=== PATIENT | female | born 1975 | race Caucasian/White ===

== ENCOUNTER 2023-07-06 10:38 | Emergency (ER) | payer MEDICARE, MEDICAID, SELFPAY ==
[2023-07-06 10:50] VITALS: BP 176/115; PULSE 76; RESP 15; TEMP 37.1; O2SAT 98; BMI 39.1
--- NOTE | 2023-07-06 11:30 | ED_ITS ---
HPI - Extremity Problem General: Chief complaint: Extremity Problem,Nontraumatic Stated complaint: left leg pain/numb, rash, Fever, chills, abd pain Time Seen by Provider: 07/06/23 10:40 Course Vital Signs: Vital signs: Vital Signs Temperature 98.7 F 07/06/23 10:50 Pulse Rate 76 07/06/23 10:50 Respiratory Rate 15 07/06/23 10:50 Blood Pressure 176/115 07/06/23 10:50 Pulse Oximetry 98 07/06/23 10:50 Oxygen Delivery Me thod Room Air 07/06/23 10:50 Discharge Plan Discharge Condition: Stable Coding Level of Care Code ED Fundraising Manager for Silvia Haley
--- NOTE | 2023-07-06 11:44 | ED_ITS ---
HPI - Extremity Problem General: Chief complaint: Extremity Problem,Nontraumatic Stated complaint: left leg pain/numb, rash, Fever, chills, abd pain Time Seen by Provider: 07/06/23 10:40 Source: patient Mode of arrival: ambulatory Limitations: no limitations History of Present Illness: Patient is a nice 47-year-old female presents to ED today with complaint of pain and a rash to her left leg. Patient states a few days ago she began noticing a burning sensation to her leg and thought maybe she possibly pulled a muscle although she does not remember any acute injury or trauma. She states she slow ly began noticing a rash to the left leg. She states she lives in a homeless custodial and is worried that she may have caught something and is worried about it spreading. She is reporting subjective fevers and chills. MD Complaint: extremity pain Onset (ago): day(s) Pain Consistency: constant Location: left and lower extremity Quality: burning Radiation: none Relieving factors: nothing Exacerbating factors: nothing Associated symptoms: Reports no associated symptoms, fever(s) and rash; Deny chest pain Review of Systems Const: Reports: fever(s) and chills; Denies: body aches, fatigue or malaise Card: Denies: chest pain Resp: Denies: dyspnea GI: Denies: abdominal pain : Denies: flank pain or dysuria Musc: Reports: back pain and extremity pain; Denies: neck pain, extremity swelling, joint pain, joint swelling, joint redness, joint warmth, joint stiffness or limited range of motion Skin/Breast: Reports: rash Neuro: Denies: headache(s), numbness in extremities, weakness in extremities or sensory changes Physical Exam Const: COMMON NORMALS: no acute distress, patient oriented x3, no limitations, alert and well nourished GENERAL APPEARANCE: cooperative NUTRITIONAL APPEARANCE: overweight ORIENTATION/CONSCIOUSNESS: Yes awake, Yes oriented to person, Yes oriented to place and Yes oriented to time Eye: GENERAL EYE: appearance normal, both eyes and all related structures Resp: COMMON NORMALS: normal respiratory effort and clear to auscultation bilaterally AUSCULTATION: clear to auscultation bilaterally Cardio: COMMON NORMALS: regular rate and regular rhythm RATE: regular rate RHYTHM: regular rhythm Back/Pelvis: LUMBAR SPINE/LOWER BACK: Yes normal to inspection and Yes lumbar ROM normal BACK IMAGE (FEMALE): 1. 2. 3. erythematous vesicular clusters Extremity: COMMON NORMALS: full ROM, capillary refill normal, no joint enlargement, no clubbing, cyanosis or edema, no calf tenderness and no pedal edema GENERAL: Yes normal exam except as noted EXTREMITY IMAGE (FRONT): 1. 2. 3. erythematous vesicular clusters Neuro: COMMON NORMALS: patient oriented x3, moves all extremities, no focal motor deficits and no sensory deficits noted SENSORIUM/ORIENTATION: Yes alert, Yes oriented to person, Yes oriented to place and Yes oriented to time Skin: NARRATIVE SKIN EXAM: Patient has scattered clusters of erythematous vesicles along lower lumbar dermatome consistent with herpes zoster RASHES: rashes noted Course Vital Signs: Vital signs: Vital Signs Temperature 98.7 F 07/06/23 10:50 Pulse Rate 76 07/06/23 10:50 Respiratory Rate 15 07/06/23 10:50 Blood Pressure 176/115 07/06/23 10:50 Pulse Oximetry 98 07/06/23 10:50 Oxygen Delivery Me thod Room Air 07/06/23 10:50 MDM - Extremity (Nontraumatic) Medical Decision Making Patient will be treated with valtrex, prednisone, hydrocodone. Discussed precautions in regards to staying away from unvaccinated, anybody who has never had chickenpox, and individuals. No radiology studies performed this visit Discharge Plan Discharge Patient Disposition: Home Clinical Impression: Shingles Qualifiers: Herpes zoster complications: without complications Qualified Code(s): B02.9 - Zoster without complications Condition: Stable Prescriptions: New Valtrex 1 gram tablet 1,000 mg PO TID 7 Days Qty: 21 0RF prednisone 10 mg tablet 10 mg PO DAILY 10 Days Qty: 27 0RF Rx Instructions: 6 tabs on days 1-2, 5 tabs on days 3, 4 tabs on day 4, 3 tabs on day 5, 2 tabs on day 6, 1 tab on day 7 hydrocodone-acetaminophen 5-325 mg tablet 1 tab PO Q6H PRN (Reason: pain) Qty: 14 0RF Discharge Orders: Discharge ED (Routine); Ordered 07/06/23 Ordered By: Fanta Jovel Patient Instructions: Shingles (ED) Stand Alone Forms: Work/School Release Coding Level of Care Code ED Skip Pitman for [facility]
== END 2023-07-06 11:52 | disposition home or self-care (01) ==
PROVIDERS: Emergency Provider Physician Assistant
DX: B02.9 Zoster without complications (principal)
CPT/HCPCS: 99284

== ENCOUNTER 2023-07-24 11:16 | Emergency (ER) | payer MEDICARE, MEDICAID, SELFPAY ==
[2023-07-24 11:30] VITALS: BP 176/91; PULSE 90; RESP 17; TEMP 37.1; O2SAT 99; BMI 32.8
--- NOTE | 2023-07-24 11:44 | ED_ITS ---
HPI - Skin/Abscess/Foreign Bdy General: Chief complaint: Skin/Abscess/Foreign Body Stated complaint: pa said shingles coming back Time Seen by Provider: 07/24/23 11:19 Source: patient Mode of arrival: ambulatory Limitations: no limitations History of Present Illness: Patient is a 47-year-old female presents to ED today with complaints of continued burning and nerve pain related to shingles that she was diagnosed with by myself about 3 weeks ago. Patient at time of diagnosis was placed on steroids, antiviral medications as well as pain medications. She states rash has subsided but is still left with the burning sensation. complaint: rash Onset (ago): week(s) Tetanus up to date: yes Location: LLE Severity: moderate Quality: burning Pain Consistency: constant Relieving factors: none Exacerbating factors: none Context: other (shingles 3 weeks ago) Associated symptoms: Reports no associated symptoms; Deny chills or fever(s) Treatments prior to arrival: none Review of Systems Const: Denies: fever(s), chills, body aches, fatigue or malaise Eyes: Denies: eye discomfort ENMT: Denies: ear or mastoid pain Card: Denies: chest pain Resp: Denies: dyspnea GI: Denies: abdominal pain Musc: Reports: extremity pain; Denies: neck pain, back pain, extremity swelling, joint pain, joint swelling, joint redness, joint warmth, joint stiffness, limited range of motion, muscle cramps, muscle weakness or decrease in muscle mass Skin/Breast: Reports: rash (healing rash; burning to where previous vesicular formations were) Neuro: Denies: headache(s), numbness in extremities, weakness in extremities or sensory changes Physical Exam Const: COMMON NORMALS: no acute distress, patient oriented x3, no limitations, alert and well nourished GENERAL APPEARANCE: cooperative NUTRITIONAL APPEARANCE: overweight Extremity: COMMON NORMALS: full ROM, capillary refill normal, no joint enlargement, no clubbing, cyanosis or edema, no calf tenderness and no pedal edema NARRATIVE EXTREMITY EXAM: R LE amputation L LE with healing lesions-no vesicular formations/active rash noted GENERAL: Yes normal exam except as noted Neuro: COMMON NORMALS: patient oriented x3 SENSORIUM/ORIENTATION: Yes alert Course Vital Signs: Vital signs: Vital Signs Temperature 98.7 F 07/24/23 11:30 Pulse Rate 90 12/15/23 11:30 Respiratory Rate 17 07/24/23 11:30 Blood Pressure 176/91 07/24/23 11:30 Pulse Oximetry 99 07/24/23 11:30 Oxygen Delivery Me thod Room Air 07/24/23 11:30 MDM - Skin/Abscess/Foreign Bdy Medicial Decision Making Patient here for post herpetic neuralgia related to herpes zoster that was diagnosed approximately 3 weeks ago. Rash seems to be healing well but she is left with the burning sensation. She was initially treated with steroids/antivirals/pain meds. Discussed topical medication such as lidocaine and capsaicin cream. We also discussed pharmacologic treatment with gabapentin or pregabalin. She did not want to try these medications as she has been on them previously with unwanted side effects. We also discussed TCAs. She wants to try topical treatment first. I think this is reasonable. Will place case management referral to get her set up with primary care provider for further evaluation/treatment. No radiology studies performed this visit Discharge Plan Discharge Patient Disposition: Home Clinical Impression: HZV (herpes zoster virus) post herpetic neuralgia Condition: Stable Prescriptions: New lidocaine 4 % cream 1 applic topical Q8H PRN (Reason: pain) Qty: 30 0RF No Action Tylenol Ex Str Rapid Release 500 mg Tablet 1,000 mg PO Q6H PRN (Reason: Pain) ibuprofen 200 mg Tablet 600 mg PO Q6H PRN (Reason: Pain) Discharge Orders: Discharge ED (Routine); Ordered 07/24/23 Ordered By: Fanta Jovel Activity Restrictions/Additional Instructions: As we discussed you can try lidocaine cream as well as capsaicin cream to help with your postherpetic neuralgia. Both of these medications are available [id number]. If these do not help there are other options such as gabapentin which you did not want to be placed on today. Other options following this include antidepressant medications. I will place a referral to get you set up with a primary care provider for further follow-up. Coding Level of Care Code ED Instrument Maintenance Supervisor for Silvia Haley
== END 2023-07-24 12:14 | disposition home or self-care (01) ==
PROVIDERS: Emergency Provider Physician Assistant
DX: B02.29 Other postherpetic nervous system involvement (principal)
CPT/HCPCS: 99282